=== PATIENT | male | born 1990 | race Two or more races ===

== ENCOUNTER 2022-11-16 21:03 | Emergency (ER) | payer BC ==
[~2022-11-16] VITALS: Ht 162.6 cm; Wt 68.1 kg
[2022-11-17 01:25] VITALS: BP 110/78
== END 2022-11-17 01:56 | disposition home or self-care (01) ==
LOC: ER 21:03
DX: S01.01XA Laceration without foreign body of scalp, initial encounter (principal); S06.0X0A Concussion without loss of consciousness, initial encounter; X58.XXXA Exposure to other specified factors, initial encounter; Y93.89 Activity, other specified; Y92.89 Other specified places as the place of occurrence of the external cause; Y99.8 Other external cause status
CPT/HCPCS: 12002; 70450